=== PATIENT | female | born 1950 | race African-American/Black ===

== ENCOUNTER 2018-03-05 11:04 | Outpatient (CLI) | payer MEDICARE | END 2018-03-05 11:05 | disposition home or self-care (01) | LOC: BICRAD 11:04 | PROVIDERS: ATTEND Family Medicine | DX: M75.101 Unspecified rotator cuff tear or rupture of right shoulder, not specified as traumatic (principal); M06.4 Inflammatory polyarthropathy; M19.011 Primary osteoarthritis, right shoulder ==